=== PATIENT | male | born 1990 | race Caucasian/White ===

== ENCOUNTER 2016-07-13 06:40 | Emergency (ER) | payer BC, OTHER ==
[~2016-07-13] VITALS: Ht 185.4 cm; Wt 85.0 kg
[~2016-07-13 06:40] MED LIST: Z.0.NO CURRENT MEDS
[2016-07-13 06:43] VITALS: BP 135/94; PULSE 105; RESP 16; TEMP 98.6; O2SAT 97
[2016-07-13] MEDS ORDERED: DIPH25TA (07:14)
[2016-07-13] MEDS ORDERED: KETOROLAC TROMETHAMINE 60 MG/2 ML (IM) VIAL IM ONE (07:15)
[2016-07-13] MEDS ORDERED: predniSONE 50 MG TAB PO ONE (07:15)
[2016-07-13] MEDS ORDERED: CLINDAMYCIN PHOS 600 MG/4 ML VIAL IM ONE (07:15)
[2016-07-13] MEDS ORDERED: PRED-503 PO (07:17)
[2016-07-13] MEDS ORDERED: IBUP800T23 PO (07:17)
[2016-07-13] MEDS ORDERED: PERI0.126 SWISH-SPIT (07:17)
[2016-07-13] MEDS ORDERED: CLIN1CAP5 PO (07:17)
--- NOTE | 2016-07-13 07:18 | PD ---
HPI Chief Complaint: Oral / Dental Pain or Problem Time Seen by Provider: 07:13 Travel History International Travel<30 days: No Contact w/Intl Traveler<30days: No Traveled to known affect area: No History of Present Illness HPI 25-year-old male presents to the emergency Department with complaint of left lower tooth pain and facial swelling. Tooth pain started on . Facial swelling started yesterday. Denies fever or vomiting. Denies difficulty swallowing. Has been taking Excedrin and Advil with minimal relief of symptoms. Has not taken any other medications or tried any treatments to alleviate symptoms. Says he can follow-up with her dentist on Thursday. No known allergies. Has no other medical complaints. No other modifying factors or associated signs and symptoms. PFSH Past Medical History Asthma: Yes (ALLERGIC TO DUST/POLLEN) Diabetes: No Patient Takes Glucophage: No Diminished Hearing: No Respiratory: Yes (SINUSITIS) Tetanus Vaccination: < 5 Years ?: Not Past Surgical History Surgical History: No Previous Surgery Social History Alcohol Use: Yes (couple times per week) Tobacco Use: Yes (1ppd) Substance Use: No Allergies-Medications (Allergen,Severity, Reaction): Coded Allergies: No Known Allergies (Verified Allergy, Mild, 04/24/06) Reported Meds & Prescriptions Reported Meds & Active Scripts Active Peridex Liq (Chlorhexidine Gluconate (Mouth) Liq) 0.12% Soln 15 Ml SWISH-SPIT BID 10 Days Deltasone (Prednisone) 20 Mg Tab 40 Mg PO DAILY 4 Days start 07/14/2016 Ibuprofen 800 Mg Tab 800 Mg PO Q6HR PRN Clindamycin (Clindamycin HCl) 150 Mg Cap 450 Mg PO Q6H 10 Days Reported Sleep Tablet (Diphenhydramine HCl) 25 Mg Tablet No Current Meds (Miscellaneous Medication) Misc Review of Systems Except as stated in HPI: all other systems reviewed are Neg Physical Exam Narrative GENERAL: Well-nourished, well-developed male patient, in no acute distress; afebrile, nontoxic-appearing SKIN: Warm and dry. HEAD: Atraumatic. Normocephalic. Left lower facial edema; without erythema; with tenderness on palpation. No lymphadenopathy. EYES: Pupils equal and round. No scleral icterus. No injection or drainage. ENT: Mucosa pink and moist. Airway patent. MOUTH: Mucous membranes moist, no lesions, tongue and gums appear normal. Tooth #18 with tenderness on palpation. Surrounding gingiva is without erythema , edema, drainage. NECK: Trachea midline. No lymphadenopathy. CARDIOVASCULAR: Regular rate. RESPIRATORY: No accessory muscle use. GASTROINTESTINAL: Flat. MUSCULOSKELETAL: No obvious deformities. No clubbing. No cyanosis. No edema. NEUROLOGICAL: Awake and alert. Oriented 3. No obvious cranial nerve deficits. Motor grossly within normal limits. Normal speech. PSYCHIATRIC: Appropriate mood and affect; insight and judgment normal. Data Data Last Documented VS Vital Signs Date Time Temp Pulse Resp B/P Pulse Ox O2 Delivery O2 Flow Rate FiO2 07/13/16 06:43 98.6 105 16 135/94 97 Room Air Orders Clindamycin Inj (Cleocin Inj) (07/13/16 07:15) Prednisone (Deltasone) (07/13/16 07:15) Ketorolac Inj (Toradol Inj) (07/13/16 07:15) MDM Medical Decision Making Medical Screen Exam Complete: Yes Emergency Medical Condition: Yes Medical Record Reviewed: Yes Differential Diagnosis Dental abscess, dentalgia, infected dental carry Narrative Course 25-year-old male with dentalgia to tooth #18 and left lower facial swelling. No lymphadenopathy. Patient is afebrile and nontoxic-appearing. He denies fever, vomiting. Patient says he can follow-up with her dentist on Thursday. There is no area noted for drainage of the abscess. Clindamycin 600 mg IM, Deltasone 50 mg, Toradol administered in the ER. Clindamycin, ibuprofen, Peridex mouth rinse, Deltasone prescribed for home. Instructed patient to follow up with dentist on Thursday. Patient verbalizes understanding and agreement with treatment plan. Patient is medically cleared and stable for discharge. Discussed reasons to return to the emergency department. Instructed patient to follow up with primary care provider. Patient agrees with treatment plan. The patients vital signs are stable and the patient is stable for outpatient follow-up and treatment. Patient discharged home, stable and in no acute distress. Diagnosis Primary Impression: Dental abscess Referrals: Dentist Primary Care Physician Patient Instructions: Dental Abscess (ED), General Instructions, Toothache (ED) Departure Forms: Tests/Procedures, Work Release Enter return to work date: July 16, 2016 Additional Instructions: Complete full course of antibiotics; clindamycin is on the $4 list [facility], otherwise try [facility]. Ibuprofen or Tylenol as directed and as needed to reduce pain and inflammation Use Peridex as directed for oral hygiene Warm or cool compresses to the affected area Follow-up with dentist on Thursday07/15/2016 Follow-up with primary care provider Return to emergency department immediately with worsening of symptoms Med/Other Pt SpecificInfo: Prescription(s) given Scripts Chlorhexidine Gluconate (Mouth) Liq (Peridex Liq)0.12% Soln15 Ml SWISH-SPIT BID 10 Days Ref 0 Prov:Albina Quiles 07/13/16 Prednisone (Deltasone)20 Mg Tab40 Mg PO DAILY 4 Days Ref 0 start 07/14/2016 Prov:Albina Quiles 07/13/16 Ibuprofen 800 Mg [id number] Mg PO Q6HR PRN (PAIN) #30 TAB Ref 0 Prov:Albina Quiles 07/13/16 Clindamycin 150 Mg [id number] Mg PO Q6H 10 Days Ref 0 Prov:Albina Quiles 07/13/16 Disposition: 01 DISCHARGE HOME Condition: Stable Albina Quiles July 13, 2016 07:18
== END 2016-07-13 08:07 | disposition home or self-care (01) ==
LOC: NEPK 06:40
DX: K04.7 Periapical abscess without sinus (principal); F17.200 Nicotine dependence, unspecified, uncomplicated
CPT/HCPCS: 96372; 99284; J1885; J7512